=== PATIENT | female | born 1990 | race Two or more races ===

== ENCOUNTER 2020-01-16 11:40 | Observation (INO) | payer MEDICAID ==
[2020-01-16] MEDS ORDERED: PREN-96 PO (13:03)
== END 2020-01-16 13:30 | disposition home or self-care (01) | DRG 566 ==
LOC: LDRP 11:40
PROVIDERS: ADMIT Specialist; ATTEND Specialist
DX: O26.892 Other specified pregnancy related conditions, second trimester (principal); R10.31 Right lower quadrant pain; Z3A.26 26 weeks gestation of pregnancy
CPT/HCPCS: 76700; G0378; 59025; 81002

== ENCOUNTER → 2020-04-08 | Outpatient (CLI) | payer MEDICAID, SELFPAY ==
[~2020-04-08] MED LIST: PREN-96 PO
--- NOTE | 2020-04-08 18:53 | NUR ---
Patient arrives at unit for scheduled Pre-op Covid swab. Patient ambulates to [facility] via steady gait, consents signed and witnessed and Covid sample collected. Patient tolerates well and ambulates off unit via steady gait. No signs of distress noted.
== END | disposition home or self-care (01) ==
LOC: OB 18:53
PROVIDERS: ATTEND Specialist
DX: Z20.828 Contact with and (suspected) exposure to other viral communicable diseases (principal)
CPT/HCPCS: C9803; U0003

== ENCOUNTER 2020-04-14 03:51 | Inpatient (IN) | payer MEDICAID, SELFPAY ==
[~2020-04-14] VITALS: Ht 167.6 cm; Wt 99.8 kg
[2020-04-14] VITALS (15 sets, daily range): BP systolic 94–125; BP diastolic 49–82
[2020-04-14 05:47] LABS: Basophils # (auto) 0 10 ^3/uL (0-0.2); Basophils % (auto) 0.6 % (0.0-2.0); Eosinophils # (auto) 0 10 ^3/uL (0-0.8); Eosinophils % (auto) 0.5 % (0.0-7.0); Hematocrit 28.4 % (36.0-46.0); Hemoglobin 8.7 g/dL (12.2-16.2); Lymphocytes # (auto) 2.2 10 ^3/uL (0.4-5.4); Lymphocytes % (auto) 33.1 % (10.0-50.0); Mean Corpuscular Hemoglobin 22.5 pg (28.0-32.0); Mean Corpuscular Hgb Conc. 30.7 g/dL (32.0-36.0); Mean Corpuscular Volume 73.4 fL (80.0-100.0); Monocytes # (auto) 0.4 10 ^3/uL (0-1.3); Monocytes % (auto) 5.8 % (0.0-12.0); Neutrophils # (auto) 4.1 10 ^3/uL (1.6-8.6); Platelet Count (auto) 187 10^3/uL (140-450); Red Blood Cells 3.87 10^6/uL (4.0-5.20); Red Cell Distribution Width 16.7 % (11.8-14.3); White Blood Cell 6.8 10^3/uL (4.4-10.8)
[2020-04-14 06:02] LABS: INR 0.92 (0.9-1.15); Partial Thromboplastin Time 25.9 sec (23.0-31.2)
[2020-04-14 06:03] LABS: Albumin 2.6 g/dL (3.4-5.0); Calcium 8.7 mg/dL (8.5-10.1); Potassium 3.9 mmol/L (3.5-5.1)
[2020-04-14 06:08] LABS: Urine Bacteria FEW /hpf (None Seen); Urine Blood Negative /uL (Negative); Urine Mucus FEW (None Seen); Urine Specific Gravity 1.019 (1.001-1.035); Urine WBC 31 /hpf (0 - 5)
[2020-04-14 06:09] LABS: BUN/Creatinine Ratio 23.1; Bilirubin, Total 0.3 mg/dL (0.2-1.0); Total Protein 6.7 g/dL (6.4-8.2)
[2020-04-14] MEDS: LACTATED RINGER'S 1,000 ML IV SCH ×3 (06:25→15:16)
[2020-04-14] MEDS ORDERED: SUCCINYLCHOLINE CHLORIDE 20 MG/ML 10ML VIAL IV ONE (07:09)
[2020-04-14] MEDS ORDERED: LIDOCAINE 1% HCL (LOCAL ANESTH.) INJ 20ML MDV ONE (07:09)
[2020-04-14] MEDS ORDERED: TETRACAINE 1% INJ 2 ML VIAL IJ ONE ×2 (07:09→07:31)
[2020-04-14] MEDS ORDERED: oxyTOCIN 10 UNIT/ML 10ML VIAL ONE (07:12)
[2020-04-14] MEDS ORDERED: SODIUM CHLORIDE LOCK 10 ML ONE (07:12)
[2020-04-14] MEDS ORDERED: MORPHINE SULF(PF) 0.5MG/ML 10ML VIAL ONE (07:12)
[2020-04-14] MEDS ORDERED: BUPIVACAINE/DEXTROSE MPF 0.75% 2 ML AMP IT ONE (07:12)
[2020-04-14] MEDS ORDERED: ONDANSETRON HCL 4 MG/2 ML VIAL ONE (07:12)
[2020-04-14] MEDS ORDERED: fentaNYL CITRATE 100 MCG/2 ML VL ONE (07:12)
[2020-04-14] MEDS ORDERED: ceFAZolin 1GM VL ONE (07:12)
[2020-04-14] MEDS ORDERED: MIDAZOLAM HCL 1MG/1ML-2 ML VIAL ONE (07:12)
[2020-04-14] MEDS ORDERED: EPINEPHrine HCL 1 MG/1 ML AMP ONE (07:13)
[2020-04-14] MEDS ORDERED: NALOXONE HCL 0.4 MG/ML VIAL IV PRN (09:30)
[2020-04-14] MEDS ORDERED: HYDROmorphone HCL 2 MG/ML VL IV PRN ×2 (09:30→12:30)
[2020-04-14] MEDS ORDERED: fentaNYL CITRATE 100 MCG/2 ML VL IV PRN (09:30)
[2020-04-14] MEDS ORDERED: diphenhdrAMINE HCL 50 MG/1 ML VL IV PRN (09:30)
[2020-04-14] MEDS ORDERED: KETOROLAC TROMETH 30 MG/ML 1ML VIAL IV ONE (09:30)
[2020-04-14] MEDS ORDERED: ACETAMINOPHEN IV 1000 MG/100ML (10MG/ML) IV PRN (09:30)
[2020-04-14] MEDS ORDERED: MORPHINE SULFATE 4 MG/ML SYR/VIAL IV PRN (09:30)
[2020-04-14] MEDS ORDERED: METOCLOPRAMIDE HCL 5MG/ml INJ 2ml VIAL IV PRN (09:30)
[2020-04-14] MEDS ORDERED: ceFAZolin 1GM/50ML 50 ML IV SCH (09:30)
[2020-04-14] MEDS ORDERED: ONDANSETRON HCL 4 MG/2 ML VIAL IV PRN (09:30)
[2020-04-14] MEDS ORDERED: GUM (CHEWING) 1 GUM CHEW CHEW ONE (09:30)
--- NOTE | 2020-04-14 10:10 | NUR ---
Post Op for LDRP: Received patient from PACU via bed to room 8B. Patient A/A/Ox4, abdominal binder and bilateral SCD's are in place, IV fluids placed on pump and infusing per order, incisional site dressing clean/dry/intact and Quezada Catheter to gravity draining clear yellow urine. Incentive Spirometer at bedside and instruction on proper use with return demonstration done by patient.
[2020-04-14] MEDS: KETOROLAC TROMETH 30 MG/ML 1ML VIAL IV PRN ×3 (10:27→22:00)
[2020-04-14] MEDS: ceFAZolin 1GM/50ML 50 ML IV SCH (16:34)
--- NOTE | 2020-04-14 23:25 | NUR ---
Ambulation: Patient OOB with standby assistance by RN. Clean gown provided and bed linen changed. Patient ambulated back to bed with steady gait and no distress noted.
[2020-04-15] MEDS: ceFAZolin 1GM/50ML 50 ML IV SCH ×2 (00:04→08:23)
[2020-04-15 03:00] VITALS: BP 99/59
[2020-04-15] MEDS: KETOROLAC TROMETH 30 MG/ML 1ML VIAL IV PRN (03:56)
--- NOTE | 2020-04-15 04:09 | NUR ---
Harvey catheter dc'd Order to discontinue harvey catheter. Harvey dc'd with clean technique following deflation of balloon. Patient tolerated well with no complaints of pain. Continue care.
[2020-04-15 05:06] LABS: RPR Non Reactive (Non Reactive)
[2020-04-15 06:40] VITALS: BP 103/63
[2020-04-15] MEDS ORDERED: HYDROcodone-ACET 5/325MG TAB PO PRN (07:30)
[2020-04-15] MEDS ORDERED: BISACODYL 10 MG RECT SUPP PR PRN (07:30)
[2020-04-15 08:06] LABS: Basophils # (auto) 0 10 ^3/uL (0-0.2); Eosinophils # (auto) 0 10 ^3/uL (0-0.8); Lymphocytes # (auto) 1.5 10 ^3/uL (0.4-5.4); Monocytes # (auto) 0.2 10 ^3/uL (0-1.3)
[2020-04-15 08:07] LABS: Basophils % (auto) 0.2 % (0.0-2.0); Eosinophils % (auto) 0.6 % (0.0-7.0); Hemoglobin 7.7 g/dL (12.2-16.2); Lymphocytes % (auto) 24.5 % (10.0-50.0); Mean Corpuscular Hemoglobin 23.6 pg (28.0-32.0); Mean Corpuscular Hgb Conc. 32.2 g/dL (32.0-36.0); Mean Corpuscular Volume 73.2 fL (80.0-100.0); Monocytes % (auto) 3.8 % (0.0-12.0); Neutrophils # (auto) 4.2 10 ^3/uL (1.6-8.6); Neutrophils % (auto) 70.9 % (37.0-80.0); Platelet Count (auto) 160 10^3/uL (140-450); Red Blood Cells 3.28 10^6/uL (4.0-5.20)
--- NOTE | 2020-04-15 08:28 | NUR ---
Ambulation: Patient OOB with standby assistance by RN. Patient ambulated to bathroom with steady gait. Patient able to void without difficulty. [facility] teaching provided with returned demonstration by patient. Patient ambulated back to bed with steady gait and no distress noted.
[2020-04-15] MEDS: HYDROcodone-ACET 5/325MG TAB PO PRN ×3 (08:31→21:29)
[2020-04-15] MEDS: DOCUSATE CALCIUM 240 MG CAP PO SCH (09:37)
[2020-04-15] MEDS: DOCUSATE SOD 100 MG CAP PO SCH ×2 (09:37→21:29)
[2020-04-15] MEDS: FERROUS SULFATE 325 MG TAB PO SCH ×3 (09:37→21:28)
[2020-04-15] MEDS: LACTATED RINGER'S 1,000 ML IV SCH (09:39)
[2020-04-15] MEDS ORDERED: FERROUS SULFATE 325 MG TAB PO SCH (10:00)
[2020-04-15 11:10] VITALS: BP 106/65
[2020-04-15] MEDS: IBUPROFEN 800 MG TAB PO PRN ×2 (11:47→19:18)
[2020-04-15] MEDS: SIMETHICONE 80 MG CHEWABLE TABLET PO SCH ×3 (15:00→21:30)
[2020-04-15 15:10] VITALS: BP 103/52
--- NOTE | 2020-04-15 15:15 | NUR ---
Discharge: Patient taken to vehicle via ambulation with all personal belongings, accompanied by staff and family member. No distress noted at time of departure, no adverse changes in status since initial assessment. Addendum: 04/15/20 at 1522 by Francisco Mulligan RN disregard note wrong patient.
[2020-04-15] MEDS ORDERED: SIMETHICONE 80 MG CHEWABLE TABLET PO SCH (18:00)
[2020-04-15 19:00] VITALS: BP 129/72
[2020-04-15 23:00] VITALS: BP 118/60
--- NOTE | 2020-04-15 23:04 | NUR ---
IV removal IV DC'd with clean technique, catheter fully intact. Pressure dressing applied to site. Patient tolerated well. NOTE:
[2020-04-16] MEDS: HYDROcodone-ACET 5/325MG TAB PO PRN ×4 (01:55→22:03)
[2020-04-16 03:00] VITALS: BP 120/70
[2020-04-16] MEDS: IBUPROFEN 800 MG TAB PO PRN ×2 (05:38→13:40)
[2020-04-16] MEDS: FERROUS SULFATE 325 MG TAB PO SCH ×3 (05:38→22:03)
[2020-04-16] MEDS: SIMETHICONE 80 MG CHEWABLE TABLET PO SCH ×4 (05:38→22:03)
[2020-04-16 07:00] VITALS: BP 116/61
[2020-04-16] MEDS: DOCUSATE CALCIUM 240 MG CAP PO SCH (09:53)
[2020-04-16] MEDS: DOCUSATE SOD 100 MG CAP PO SCH ×2 (09:54→22:02)
[2020-04-16 10:30] VITALS: BP 99/67
--- NOTE | 2020-04-16 13:35 | NUR ---
CALLED DR. NELSON WITH 7.2 % WEIGHT LOSS AND DRAGER DONE ON INFANTS FOREHEAD RESULT IS 8.8 MG/DL AND INFANT WAS BORN ON 04/14/20 AT 0826 AM. HE IS AWARE PATIENT IS BOTTLE AND BREAST FEEDING. PER DR. NELSON HE WILL SEE TOMORROW MORNING. NO SERUM BILI TEST PER DR. NELSON.
[2020-04-16 15:00] VITALS: BP 105/61
[2020-04-16 19:00] VITALS: BP 128/75
--- NOTE | 2020-04-16 19:30 | NUR ---
Ambulation: Patient OOB and ambulating the hallway while pushing in open crib, gait steady. No signs of distress or discomfort noted.
--- NOTE | 2020-04-16 19:40 | NUR ---
REVIEWED VITALS. Addendum: 04/16/20 at 1941 by Francisco Mulligan RN Amended: Links added.
[2020-04-16 23:00] VITALS: BP 101/65
[2020-04-17] MEDS: IBUPROFEN 800 MG TAB PO PRN (02:23)
[2020-04-17 03:00] VITALS: BP 112/67
[2020-04-17] MEDS: HYDROcodone-ACET 5/325MG TAB PO PRN (05:31)
[2020-04-17] MEDS: SIMETHICONE 80 MG CHEWABLE TABLET PO SCH (05:31)
[2020-04-17] MEDS: FERROUS SULFATE 325 MG TAB PO SCH (05:31)
[2020-04-17] MEDS ORDERED: BISACODYL 10 MG RECT SUPP PR ONE (05:45)
[2020-04-17 07:30] VITALS: BP 103/61
--- NOTE | 2020-04-17 10:30 | NUR ---
Discharge: Discharge instructions given as ordered. Pt encouraged to follow up with [facility] as instructed on 05/01/20 @ 9:30am. All questions and concerns addressed. Patient verbalized understanding. Medication reconciliation completed and copy given to patient. Patient encouraged to prepare to depart unit.
--- NOTE | 2020-04-17 10:45 | NUR ---
Discharge: Patient Ambulated to vehicle with all personal belongings, accompanied by staff and family member. No distress noted at time of departure, no adverse changes in status since initial assessment.
[2020-04-17 10:53] VITALS: BP 110/72
== END 2020-04-17 10:37 | disposition home or self-care (01) | DRG 540 ==
LOC: LDRP 03:51 → OBSVTOIN 03:51 → LDRP 12:14
PROVIDERS: ADMIT Specialist; ATTEND Specialist
PROC: 0UL50CZ Occlusion of Right Fallopian Tube with Extraluminal Device, Open Approach (ICD-10-PCS; 2020-04-14)
PROC: 10D00Z1 Extraction of Products of Conception, Low, Open Approach (ICD-10-PCS; principal; 2020-04-14 07:53)
DX: O34.211 Maternal care for low transverse scar from previous cesarean delivery (principal); O99.02 Anemia complicating childbirth; Z37.0 Single live birth; Z3A.39 39 weeks gestation of pregnancy; Z90.721 Acquired absence of ovaries, unilateral; Z30.2 Encounter for sterilization; J45.909 Unspecified asthma, uncomplicated; O99.52 Diseases of the respiratory system complicating childbirth
CPT/HCPCS: 36415; 59025; 80053; 81001; 84112; 85025; 85610; 85730; 86592; 86850; 86900; 86901; 86920; 94762; 96360; 96361; 96365; 96366; 96374; 96375; G0378; J0171; J0330; J0690; J1885; J2001; J2250; J2405; J2590